=== PATIENT | male | born 1980 | race Caucasian/White ===

== ENCOUNTER → 2017-06-04 15:59 | Outpatient (CLI) | payer SELFPAY ==
--- NOTE | 2017-06-04 16:01 | RAD_ITS ---
STUDY: X-RAY - LEFT ELBOW REASON FOR EXAM: Male, 36 years old. Postop TECHNIQUE: 3 view(s) of the elbow. COMPARISON: 05/28/2017. FINDINGS: Normal visualized humerus, radius. Proximal ulnar hardware with partial dilatation of a proximal ulnar fracture. Normal radiocapitellar and ulnotrochlear articulations. The soft tissue structures are unremarkable. Surgical skin helen posterior to the proximal forearm and elbow. RAD/Elbow min 3 Views IMPRESSION: Proximal ulnar hardware partially visualized. Partially visualized ulnar fracture. Electronically Signed: Jordan Lennon DO at 9:05 EST , Service support ,
--- NOTE | 2017-06-04 16:01 | RAD_ITS ---
STUDY: X-RAY - LEFT RADIUS AND ULNA REASON FOR EXAM: Male, 36 years old. Postoperative exam. Follow-up examination. TECHNIQUE: 2 view(s) of the forearm. COMPARISON: 05/28/2017. FINDINGS: The forearm is out of cast. There is diffuse soft tissue swelling. Normal visualized radius. There again is side plate sac and screws securing fracture of the proximal third of the ulnar shaft. The alignment and position have not significantly changed the previous examination. The fracture site distally visualized skin helen are again seen. RAD/Forearm 2 Views IMPRESSION: Status post open reduction internal fixation of fracture of the ulna. No significant change in alignment or position of the fracture. Electronically Signed: Cleve Matos MD at 8:27 EST Tel , Service support ,
--- NOTE | 2017-06-04 16:36 | RAD_ITS ---
STUDY: X-RAY - LEFT ELBOW REASON FOR EXAM: Male, 36 years old. Casting TECHNIQUE: Lateral view(s) of the elbow. COMPARISON: None. FINDINGS: A lateral view of the elbow submitted. There is a cast in place. Proximal ulnar hardware identified. Good alignment. RAD/Elbow 2 Views IMPRESSION: Limited elbow. Cast in place. Good alignment. Electronically Signed: Jordan Lennon DO at 9:21 EST , Service support ,
== END ==
PROVIDERS: Family Provider Internal Medicine; PCP Internal Medicine; Visit Provider Orthopaedic Surgery
DX: M79.602 Pain in left arm (principal); S52.27 Monteggia's fracture of ulna
CPT/HCPCS: 73070; 73080; 73090

== ENCOUNTER → 2017-06-18 15:46 | Outpatient (CLI) | payer SELFPAY ==
[2017-05-20 10:44] VITALS: BMI 23.8
[2017-05-20 18:00] VITALS: BP 139/86
--- NOTE | 2017-06-18 15:48 | RAD_ITS ---
STUDY: X-RAY - LEFT RADIUS AND ULNA REASON FOR EXAM: Male, 36 years old. Fracture TECHNIQUE: 4 view(s) of the forearm. COMPARISON: None. FINDINGS: There is no demonstrated soft tissue swelling. Postop changes status post open reduction internal fixation of proximal ulnar fracture with fracture fragments in anatomic alignment and position.. There is some callus deposition consistent with early healing RAD/Forearm 2 Views IMPRESSION: Early healing fracture of the proximal ulna Electronically Signed: Emanuel Elkins MD at 23:34 EST , Service support ,
== END ==
PROVIDERS: Family Provider Internal Medicine; PCP Internal Medicine; Visit Provider Orthopaedic Surgery
DX: S52.90XA Unspecified fracture of unspecified forearm, initial encounter for closed fracture (principal); M25.522 Pain in left elbow
CPT/HCPCS: 73090

== ENCOUNTER → 2017-07-09 15:50 | Outpatient (CLI) | payer SELFPAY ==
--- NOTE | 2017-07-09 15:51 | RAD_ITS ---
STUDY: X-RAY - LEFT RADIUS AND ULNA REASON FOR EXAM: Male, 36 years old. Pain TECHNIQUE: 3 view(s) of the forearm. COMPARISON: June 18 2017 FINDINGS: There is no demonstrated soft tissue swelling. Normal visualized radius. There is a healing fracture of the proximal ulnar shaft status post ORIF. RAD/Forearm 2 Views IMPRESSION: Healing fracture of the proximal ulnar shaft status post ORIF Electronically Signed: Emanuel Elkins MD at 22:01 EST , Service support ,
== END ==
PROVIDERS: Family Provider Internal Medicine; PCP Internal Medicine; Visit Provider Orthopaedic Surgery
DX: M79.632 Pain in left forearm (principal)
CPT/HCPCS: 73090

== ENCOUNTER → 2017-07-23 15:44 | Outpatient (CLI) | payer SELFPAY | PROVIDERS: Family Provider Internal Medicine; PCP Internal Medicine; Visit Provider Orthopaedic Surgery | DX: M79.632 Pain in left forearm (principal) | CPT/HCPCS: 73090 ==

== ENCOUNTER → 2017-08-06 08:39 | Outpatient (CLI) | payer SELFPAY ==
--- NOTE | 2017-08-06 08:42 | CT_ITS ---
Study: CT of the upper extremity without contrast Prior study: None. CLINICAL HISTORY: Left forearm pain, status post ORIF of proximal ulnar shaft fracture PROCEDURE: Multiple computed tomographic images of the left forearm were obtained at 2.5 mm intervals using contiguous 2.5 mm thick slices in the axial projection. 2.5 mm coronal and sagittal reconstructions were obtained. 3-D reconstructions were also performed. Radiation dose: Total exam DLP: 507.54 mGy/cm FINDINGS: Evaluation of ulnar fracture site is limited secondary to scanning artifact caused by orthopedic plate and multiple screws. There is an internal fixation plate with multiple screws along the proximal to mid ulnar shaft stabilizing a nondisplaced comminuted fracture of the proximal ulnar shaft. The fracture appears in adequate alignment. There is moderate callus formation about the fracture site. Bone union has not occurred as of yet. There is a 6 mm calcific fragment of the anterior radiohumeral articulation which is of unknown significance. The visualized radius appears intact. Muscular fascial planes appear preserved. No abnormal soft tissue fluid collection is identified. CT/Extremity Upper without Contra IMPRESSION: Status post ORIF changes of proximal ulnar shaft fracture with fracture fragments appearing in adequate alignment. There is moderate callus about the fracture site. Bone union has not occurred as of yet. No abnormal soft tissue fluid collection is seen. Muscular fascial planes are preserved. Repeat plain film study of the left forearm May BE helpful for further evaluation. Electronically Signed: Nirmal Hampton MD at 17:35 EDT , Service support ,
--- NOTE | 2017-08-06 08:59 | CT_ITS ---
Study: CT of the upper extremity without contrast Prior study: None. CLINICAL HISTORY: Left forearm pain, status post ORIF of proximal ulnar shaft fracture PROCEDURE: Multiple computed tomographic images of the left forearm were obtained at 2.5 mm intervals using contiguous 2.5 mm thick slices in the axial projection. 2.5 mm coronal and sagittal reconstructions were obtained. 3-D reconstructions were also performed. Radiation dose: Total exam DLP: 507.54 mGy/cm FINDINGS: Evaluation of ulnar fracture site is limited secondary to scanning artifact caused by orthopedic plate and multiple screws. There is an internal fixation plate with multiple screws along the proximal to mid ulnar shaft stabilizing a nondisplaced comminuted fracture of the proximal ulnar shaft. The fracture appears in adequate alignment. There is moderate callus formation about the fracture site. Bone union has not occurred as of yet. There is a 6 mm calcific fragment of the anterior radiohumeral articulation which is of unknown significance. The visualized radius appears intact. Muscular fascial planes appear preserved. No abnormal soft tissue fluid collection is identified. CT/Coronals Sag Multi Obl 3-D Rec IMPRESSION: Status post ORIF changes of proximal ulnar shaft fracture with fracture fragments appearing in adequate alignment. There is moderate callus about the fracture site. Bone union has not occurred as of yet. No abnormal soft tissue fluid collection is seen. Muscular fascial planes are preserved. Repeat plain film study of the left forearm May BE helpful for further evaluation. Electronically Signed: Nirmal Hampton MD at 17:35 EDT , Service support ,
== END ==
PROVIDERS: Family Provider Internal Medicine; PCP Internal Medicine; Visit Provider Orthopaedic Surgery
DX: S52.90XA Unspecified fracture of unspecified forearm, initial encounter for closed fracture (principal)
CPT/HCPCS: 73200; 76377

== ENCOUNTER 2019-07-04 18:00 | Outpatient (RCR) | payer SELFPAY ==
--- NOTE | 2019-05-19 08:03 | HP.PTEVAL_ITS ---
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 Date of Evaluation: 05/19/19 Physical Therapist: Lion Altamirano, DPT, OCS, CSCS - Visit Plan Frequency: 2-3x /Week Duration: 4-6 Weeks Plan: weekly to 3x/week(pt wishes to keep visits to minimum as he does not know who is paying for this). Currently no wrist ROM allowed, gentle elbow ROM, gentle supinationa nd pronation. No squeezing with hand but can open and close it. Progress PROM and AROM of elbow flex and ext adn supinationa nd pronation with mobs to increase ROM. MH, biceps and triceps inhibition sTM, paraffin. Add hand opening adn closing for tendon gliding and supination PROM if doing better, bring in 3x/week for 3-4 if not improving ROM. - Subjective Findings: Had surgery years ago which was botched. Initial surgery was 2016 adn has hurt ever since. Fractured ulna in a fall. Wrist movement was not present adn elbow kept dislocating. New surgery from new surgeon. Removed plate on ulna and removed that fracture, removed bone from wrist and put in elbow. That was 25 of April. HEp includes aROM L elbow. Has a splint at home which he is supposed to be wearing to remind him to not use it. No use allowed with L elbow but is supposed to move it. Back to doctor end may. Pain is constant. 5/10 and been like that since the first surgery. [place]oreso since the 2nd surgery. Sleep is not great due to pain. 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 Was off a few days after surgery. Unable to do physical labor that he woud do odds and ends loza. Basic ADLS are getting done. Hobbies: Enjoys working on cars and bikes but has not had any use of arm to this point since the fracture. Would like to weight lift adn shoot a bow. - Pain L elbow Pain Intensity (Out of 10): 5 Pain Intensity Range: 4, 5 - Objective L elbow -30 from extension, 120 flexion, slow and painful. 75 AROM supinationand pronation with 80 assively. Wrist not test in flexion/ext. Hand opens and closes gently. PROM adfter stretching today L elbow flexion 130, ext -20, supination 80 and pronation 70. Pt has full cervical and scapular and shoulder ROM without increased pain today. Endfeels on elbow are painful and firm. Hand opens adn closes well on L side but does not squeeze hard. Wrist ROM not tested today with flexion ext per doctor order. Incisions healed well, no signs of redness heat or swelling. - Goals Goal 1:: Full extension L elbow and full felxion symmetrical with R, 85 degrees pronation all without increased pain and smooth AROM Goal Time Frame: 4-6 Weeks Goal 2:: Pt feel elbow and L arm 75% back to normal Goal Time Frame: 4-6 Weeks Goal 3:: I approp HEP for L elbow and mnaagement of condition Goal Time Frame: 4-6 Weeks Goal 4:: Sleep without waking due to pain Goal Time Frame: 4-6 Weeks - Rehabilitation Potential Physical Therapy Diagnosis: L elbow stiffness s/p surgery 04/25 Rehabilitation Potential: Fair - Anticipated Interventions Patient/Client Instruction: Educate patient on: Condition, Plan of Care For the Purpose of:: To decrease pain, To improve muscle performance and motor function, To increase tolerance to activity/condition/position, To improve ability of physical actions for home/community/work/leisure Therapeutic Exercise to Include: Strength training, Flexibilty training, Passive ROM, Active ROM For the Purpose of:: To decrease pain, To improve muscle performance and motor function, To increase tolerance to activity/condition/position, To improve ability of physical actions for home/community/work/leisure, To improve gait and locomotor functions Manual Therapy Techniques to Include: Mobilization, Soft tissue mobilization For the Purpose of:: To increase ROM, To increase tolerance to activity/condition/position Thermo therapy (hot pack): Yes For the Purpose of:: To increase ROM Thank you for the opportunity to evaluate your patient. For Medicare and Medicare HMO plans, please review the plan of care and approve it. It will need to be FAXED BACK to us at [phone] for Medicare purposes. For Medicare only, by signing this I certify the plan of care. Please let me know if there are questions or concerns regarding this plan of care. Physician Signature: Date:
--- NOTE | 2019-06-07 17:05 | HP.PTREVAL ---
SHARA JOHNSON, It has been my pleasure to treat SHARON WRIGHT over the last 3 visits for L closed fracture shaft of ulna with malunion, s/p surgery 04/25. Please see the progress note below for an update on the physical therapy plan of care! Subjective: Pain level is none. Pain only with stretching to 8/10 tranisently. To doctor tomorrow. Motion is coming back. Objective/Function: 136 AROM flexion R. -18 active ex and -12 passive. -11 AROM after stretching PROM -5 ext after stretching. Overall patient is improving slowly with Active adn passive ROM. Pain is not an issue except while stretching. Pt to doctor tomorrow. Plan Plan: f/u next week to cotninue manual and ROM and strengthening depending on how doctor visit goes. Pt to call if plan changes. Goals Goal 1:: Full extension L elbow and full felxion symmetrical with R, 85 degrees pronation all without increased pain and smooth AROM Goal Time Frame: 4-6 Weeks Goal 2:: Pt feel elbow and L arm 75% back to normal Goal Time Frame: 4-6 Weeks Goal 3:: I approp HEP for L elbow and mnaagement of condition Goal Time Frame: 4-6 Weeks Goal 4:: Sleep without waking due to pain Goal Time Frame: 4-6 Weeks Anticipated Interventions Patient/Client Instruction: Educate patient on: Condition, Plan of Care For the Purpose of:: To decrease pain, To improve muscle performance and motor function, To increase tolerance to activity/condition/position, To improve ability of physical actions for home/community/work/leisure Therapeutic Exercise to Include: Strength training, Flexibilty training, Passive ROM, Active ROM For the Purpose of:: To decrease pain, To improve muscle performance and motor function, To increase tolerance to activity/condition/position, To improve ability of physical actions for home/community/work/leisure, To improve gait and locomotor functions Manual Therapy Techniques to Include: Mobilization, Soft tissue mobilization For the Purpose of:: To increase ROM, To increase tolerance to activity/condition/position Thermo therapy (hot pack): Yes For the Purpose of:: To increase ROM Please do not hesitate to contact me at [phone] by phone or if you have questions or concerns regarding this new plan of care! Sincerely, Lion Altamirano, DPT, OCS, CSCS
--- NOTE | 2019-08-15 13:41 | HP.PTDCNRP_ITS ---
SHARON WRIGHT was seen in my office for initial evaluation on 05/19/19. The following Plan of Care was established for this patient: Initial Frequency: 2-3x /Week Initial Duration: 4-6 Weeks Patient/Client Instruction: Educate patient on: Condition, Plan of Care For the Purpose of:: To decrease pain, To improve muscle performance and motor function, To increase tolerance to activity/condition/position, To improve ability of physical actions for home/community/work/leisure Therapeutic Exercise to Include: Strength training, Flexibilty training, Passive ROM, Active ROM For the Purpose of:: To decrease pain, To improve muscle performance and motor function, To increase tolerance to activity/condition/position, To improve ability of physical actions for home/community/work/leisure, To improve gait and locomotor functions Manual Therapy Techniques to Include: Mobilization, Soft tissue mobilization For the Purpose of:: To increase ROM, To increase tolerance to activity/con dition/position Thermo therapy (hot pack): Yes For the Purpose of:: To increase ROM This patient was last seen in our office 07/04/18. Pertinent comments regarding their Physical therapy will appear below: Pt seen 5 visits of POC and was making slow progress with his ROM. He was to f/u a week later but cancelled withotu rescheduling. At this point, it has been nearly 6 weeks and I will discontinue due to nonattendance. At this point I will be discontinuing this patient from physical therapy. I would be happy to see this patient again in the future if found appropriate by the physician. Thank you! Lion Altamirano, DPT, OCS, CSCS
== END 2019-07-04 19:00 | disposition home or self-care (01) ==
LOC: PT 18:00
DX: M24.522 Contracture, left elbow (principal); M25.322 Other instability, left elbow; S52.292 Other fracture of shaft of left ulna
CPT/HCPCS: 97110; 97140; 97162; 97530